=== PATIENT | female | born 1990 | race Caucasian/White ===

== ENCOUNTER 2017-11-16 20:29 | Emergency (ER) | payer OTHER, MEDICAID ==
[~2017-11-16] VITALS: Ht 162.6 cm; Wt 39.6 kg
[~2017-11-16 20:29] MED LIST: CEPH-571 PO; HYDR-3965 PO; HYDR-569 PO; PENI500T2 PO; SUMA100T PO; VARE1TAB21 PO; ZOF4T PO
[2017-11-16] MEDS ORDERED: ketorolac trometh inj. 60 MG/2 ML VIAL IM ONE (21:10)
[2017-11-16] MEDS ORDERED: diphenhydrAMINE 50 mg/ml inj IM ONE (21:10)
[2017-11-16] MEDS ORDERED: metoclopramide 5 mg/ml inj IM ONE (21:10)
[2017-11-16] MEDS ORDERED: oxyCODONE/APAP 10/325mg tablet PO ONE (22:10)
[2017-11-16] MEDS ORDERED: oxyCODONE/APAP 5-325mg tablet PO ONE (22:10)
[2017-11-16 22:35] VITALS: BP 100/62
== END 2017-11-16 22:25 | disposition home or self-care (01) ==
LOC: ER 20:30
DX: R51 Headache (principal); M54.2 Cervicalgia; R11.2 Nausea with vomiting, unspecified; G89.29 Other chronic pain; M19.90 Unspecified osteoarthritis, unspecified site; Z90.710 Acquired absence of both cervix and uterus; Z79.899 Other long term (current) drug therapy
CPT/HCPCS: 70450; 72125; 96372; 99284; J1200; J1885; J2765; 99285